=== PATIENT | male | born 1990 | race Caucasian/White ===

== ENCOUNTER 2017-08-25 00:45 | Emergency (ER) | payer MEDICARE ==
[~2017-08-25] VITALS: Ht 175.3 cm; Wt 115.7 kg
[2017-08-25 00:46] VITALS: BP_SYST 151
[2017-08-25] MEDS ORDERED: ASPIRIN 81 MG TAB.CHEW PO ONE (01:00)
[2017-08-25] MEDS ORDERED: KETOROLAC TROMETHAMINE 30 MG VIAL IVP ONE (01:00)
[2017-08-25 01:21] LABS: BASOPHILS # (AUTO) 0.1 K/uL (0.0-0.2); BASOPHILS % (AUTO) 0.8 % (0.0-2.0); EOSINOPHILS # (AUTO) 0.7 K/uL (0.0-0.4); EOSINOPHILS % (AUTO) 7.8 % (0.0-4.0); HEMATOCRIT 47.2 % (36-54); HEMOGLOBIN 16.4 g/dL (14.0-18.0); LYMPHOCYTES # (AUTO) 2.6 K/uL (1.0-5.5); LYMPHOCYTES % (AUTO) 27.3 % (20.5-51.5); MEAN CORPUSCULAR HEMOGLOBIN 28 pg (27-31); MEAN CORPUSCULAR HGB CONC 35 % (32-36); MEAN CORPUSCULAR VOLUME 82 fL (79.0-98.0); MONOCYTES # (AUTO) 0.6 K/uL (0.0-1.0); MONOCYTES % (AUTO) 6.7 % (1.7-9.3); NEUTROPHILS # (AUTO) 5.6 K/uL (1.8-7.7); NEUTROPHILS % (AUTO) 57.4 % (40.0-70.0); PLATELET COUNT (AUTO) 370 K/uL (130-430); RED BLOOD CELL COUNT(AUTO) 5.78 MIL/uL (4.2-6.2); RED CELL DISTRIBUTION WIDTH 12.7 % (9.0-15.0); WHITE BLOOD COUNT (AUTO) 9.6 K/uL (4.8-10.8)
[2017-08-25] MEDS ORDERED: ONDANSETRON HCL 4 MG/2 ML VIAL IVP ONE (01:30)
[2017-08-25] MEDS ORDERED: MORPHINE 4 MG/ML INJ. SYRINGE IVP ONE ×2 (01:30→03:00)
[2017-08-25 01:32] LABS: CALCIUM 8.4 mg/dL (8.4-11.0); CREATININE 0.71 mg/dL (0.55-1.30); POTASSIUM 3.6 mmol/L (3.5-5.1)
[2017-08-25] MEDS ORDERED: MORPHINE SULFATE 10 MG/ML VIAL ONE ×2 (01:35→03:26)
[2017-08-25 01:36] LABS: PROTHROMBIN TIME 9.8 SECS (9.5-12.5)
[2017-08-25 01:38] LABS: ALBUMIN 3.6 g/dL (3.4-4.8); TOTAL BILIRUBIN 0.6 mg/dL (0.0-1.0)
[2017-08-25] MEDS ORDERED: DIPHENHYDRAMINE INJ 50 MG/ML VIAL IVP ONE (03:00)
[2017-08-25 05:34] VITALS: BP_SYST 134
== END 2017-08-25 05:34 | disposition home or self-care (01) ==
LOC: SED 00:45
DX: M94.0 Chondrocostal junction syndrome [Tietze] (principal)
CPT/HCPCS: 36415; 71045; 71250; 80053; 82550; 83690; 84484; 85025; 85610; 85730; 93005; 96374; 96375; 96376; 99285; J1200; J1885; J2270; J2405